=== PATIENT | male | born 1975 | race Caucasian/White ===

== ENCOUNTER 2022-04-06 23:49 | Emergency (ER) | payer OTHER, SELFPAY ==
[2022-04-06 23:50] VITALS: BP 182/105; PULSE 92; RESP 18; TEMP 36.2; BMI 45.9
[2022-04-06 23:55] VITALS: BP 182/105; PULSE 92; RESP 18; TEMP 36.2
--- NOTE | 2022-04-07 00:26 | EX.ED.DYSGE1 ---
HPI History of Present Illness Chief Complaint: Back Narrative Narrative: Patient is a 46-year-old male with past medical history of hypertension and diabetes who states that he fell down steps roughly 6 months ago at work and injured his back. He states he has been working with [employer] and has an MRI scheduled for Saturday. He states that today he began with pain radiating from his low back into his left leg/ankle. He states there was no new trauma or increased activity. He reports has been no loss of bowel or bladder control or IV drug use. He states because of the change in pain he was concerned and therefore comes in for evaluation [facility] Medical History Back injury Hypertension Type 2 diabetes mellitus Home Medications metformin 500 mg tablet 500 mg PO DAILY 04/07/22 [History Last Taken Unknown] methocarbamol 500 mg tablet 1,000 mg PO 4X/DAY PRN PRN Muscle pain/spasm #56 tabs 04/07/22 [Rx Last Taken Unknown] oxycodone-acetaminophen 5 mg-325 mg tablet (Percocet) 1 tab PO Q6H PRN pain 3 days #12 tabs 04/07/22 [Rx Last Taken Unknown] Allergy/AdvReac Type Severity Reaction Status Date / Time codeine AdvReac Upset Verified 04/07/22 00:18 Stomach Social History Smoking Status: Former smoker ROS ROS ED Constitutional Constitutional ED: Denies chills or fever(s) ENT ENT ED: Denies sore throat Cardiovascular Cardiovascular: Denies chest pain Respiratory/Chest Respiratory/Chest: Denies cough or dyspnea Gastrointestinal Gastrointestinal: Denies abdominal pain, diarrhea, nausea or vomiting Genitourinary Genitourinary ED: Denies dysuria or hematuria Musculoskeletal Musculoskeletal: Reports back pain; Denies myalgias Integumentary Denies rash Neurologic Neurologic: Denies headache(s) Hematologic/Lymphatic Hematologic/Lymphatic: Denies easy bleeding or easy bruising EXAM Physical Exam Const Vital Signs: 04/06/22 23:50 04/06/22 23:55 04/07/22 00:28 Temperature 97.1 F L 97.1 F L Temperature Source Temporal Temporal Pulse Rate 92 92 Respiratory Rate 18 18 18 Blood Pressure 182/105 H 182/105 H Blood Pressure Mean 130 130 Positive well nourished, well developed and obese General Appearance ED: well developed Nutritional Appearance: obese Eyes PERRL and EOMs intact bilaterally Neck supple Resp normal respiratory effort and clear to auscultation bilaterally Cardio regular rate and regular rhythm Rate: other Other Details: Radial pulses are plus 2 out of 4 bilaterally are equal and symmetric Back/Spine Back/Spine Narrative: No bony deformity or step-off of the thoracic or lumbar spine no midline pain with palpation. No CVA pain noted. No saddle anesthesia. Patellar reflexes are plus 1 out of 4 bilaterally. No clonus or Babinski. Patient does have a positive straight leg raise on left at approximately 45 degrees. Extremity normal to inspection Neuro oriented x3 and CN's II-XII intact bilaterally Sensorium / Orientation: alert Psych mental status grossly normal Skin no rashes or lesions noted Skin Narrative: No overlying soft tissue changes to suggest trauma or infection MDM MDM MDM Narrative Medical decision making narrative: Patient presented to the ER hypertensive but has a past medical history of this and he is in pain so this to be expected. He does not have any risk factors for cauda equina or epidural abscess and there has been no physical exam or history of repeat trauma. Therefore this time I do not feel there is need for imaging or laboratory studies especially as the patient is going for an MRI in 5 days. At this time with the change in pain to the left leg and the fact he has a positive straight leg raise I feel he has exacerbated a previously ruptured disc. However as he has no signs of neuro claudication there is no need for emergent orthopedic/neurosurgery consultation. Patient can be given symptomatic treatment and have his MRI next week as previously directed. Discharge Plan Triage Chief Complaint: Back ED Provider: Souleymane Tadeo Dx/Rx/DC Orders Clinical Impression: Herniated lumbar intervertebral disc Instructions: ED Herniated Intervertebral Disk Prescriptions: New oxycodone-acetaminophen [Percocet] 5-325 mg tablet 1 tab PO Q6H PRN (Reason: pain) 3 Days Qty: 12 0RF methocarbamol 500 mg tablet 1,000 mg PO 4X/DAY PRN PRN (Reason: Muscle pain/spasm) Qty: 56 0RF No Action metformin 500 mg Tablet 500 mg PO DAILY Primary Care Provider: AMANDA BRYANT Referrals: [facility] Doctor,Out of [Non-Staff] - Activity Restrictions/Additional Instructions: He is keep your MRI appointment for next week to assess the cause of your symptoms which are most like related to a ruptured/herniated disc. Take your medication as directed to help control your pain and return to the ER should you have any further concerns Disposition Disposition: Home, Self Care
[2022-04-07 00:28] VITALS: RESP 18
[2022-04-07] MEDS: oxyCODONE 5 MG Tablet 10 MG PO (00:40)
[2022-04-07] MEDS: Orphenadrine 100 MG Tablet PO (00:40)
== END 2022-04-07 00:43 | disposition home or self-care (01) ==
PROVIDERS: Emergency Provider Emergency Medicine; Visit Provider Emergency Medicine
DX: M51.26 Other intervertebral disc displacement, lumbar region (principal); E11.9 Type 2 diabetes mellitus without complications; Z87.891 Personal history of nicotine dependence; I10 Essential (primary) hypertension
CPT/HCPCS: 99283